=== PATIENT | male | born 1970 | race African-American/Black ===

== ENCOUNTER 2025-07-26 19:03 | Emergency (ER) | payer BC, MEDICAID ==
[~2025-07-26] VITALS: Ht 177.8 cm; Wt 91.0 kg
[~2025-07-26 19:03] MED LIST: HYDR-3735 PO; MELA10TA2 PO; TRAZ-252 PO
[2025-07-26 19:06] VITALS: O2SAT 98
[2025-07-26] MEDS ORDERED: LORAZEPAM 1MG TABLET PO STA (19:18)
[2025-07-26 20:18] LABS: BASOPHILS % 0.4 % (0.0-2.0); EOSINOPHILS % 2.1 % (0.0-5.0); HEMATOCRIT. 46.9 % (42.0-52.0); HEMOGLOBIN. 15.9 g/dL (14.0-18.0); LYMPHOCYTES % 28.7 % (20.0-50.0); MEAN PLATELET VOLUME 8.8 fl (7.4-10.4); MONOCYTES % 6.7 % (2.0-8.0); NEUTROPHILS % 62.1 % (40.0-76.0); PLATELET 239 x1000/uL (130-400); RED BLOOD CELL COUNT 5.14 mill/uL (4.7-6.1); RED CELL DISTRIBUTION WIDTH 13.5 % (11.6-14.6)
[2025-07-26 20:36] LABS: CREATININE 1.2 mg/dL (0.6-1.3)
[2025-07-26 20:37] LABS: UREA NITROGEN BLOOD 7 mg/dL (9-23)
[2025-07-26 20:38] LABS: ASPARTATE AMINOTRANSFERASE 8 IU/L (<34)
[2025-07-26 20:39] LABS: BILIRUBIN DIRECT 0.1 mg/dL (<=3.0); BILIRUBIN TOTAL 0.5 mg/dL (0.1-1.0); PROTEIN TOTAL 7.0 g/dL (6.0-8.3)
[2025-07-26 20:46] LABS: CLARITY URINE CLEAR (CLEAR); COLOR URINE YELLOW (YELLOW); GLUCOSE URINE TRACE (NEGATIVE); KETONES URINE TRACE (NEGATIVE); LEUKOCYTE ESTERASE URINE TRACE (NEGATIVE); NITRITE URINE NEGATIVE (NEGATIVE); OCCULT BLOOD URINE NEGATIVE (NEGATIVE); PH URINE 5.5 (4.5-8.0); PROTEIN URINE TRACE (NEGATIVE); SPECIFIC GRAVITY URINE 1.020 (1.005-1.030); UROBILINOGEN URINE 0.2 E.U./dL (0.2-1.0)
[2025-07-26 21:01] LABS: *AMPHETAMINES SCREEN URINE PRESUMPTIVE POSITIVE (NEGATIVE); *BARBITURATES SCREEN URINE NEGATIVE (NEGATIVE); *BENZODIAZEPINES SCREEN URINE NEGATIVE (NEGATIVE)
[2025-07-26 21:02] LABS: *COCAINE SCREEN URINE NEGATIVE (NEGATIVE); BACTERIA URINE NONE SEEN; CANNABINOID URINE SCREEN PRESUMPTIVE POSITIVE (NEGATIVE); ECSTASY MDMA SCREEN URINE NEGATIVE (NEGATIVE); METHADONE URINE SCREEN NEGATIVE (NEGATIVE); MUCUS URINE TRACE /lpf (NONE/TRACE); OPIATES URINE SCREEN NEGATIVE (NEGATIVE); PHENCYCLIDINE URINE SCREEN NEGATIVE (NEGATIVE); RBC URINE NONE SEEN /hpf (0-2); SQUAMOUS EPITHELIAL CELL URINE RARE /lpf (RARE/1+); WBC URINE 0-2 /hpf (0-2)
[2025-07-27] MEDS: LORAZEPAM 1MG TABLET PO SCH
[2025-07-27] MEDS: OLANZAPINE 5MG TABLET ODT PO SCH (10:35)
[2025-07-28 12:30] VITALS: BP 103/63; PULSE 92; RESP 16; TEMP 36.6; O2SAT 99
== END 2025-07-28 18:16 | disposition home or self-care (01) ==
LOC: ER 19:03
DX: R45.851 Suicidal ideations (principal); F20.9 Schizophrenia, unspecified; F41.9 Anxiety disorder, unspecified; Z79.899 Other long term (current) drug therapy; Z20.822 Contact with and (suspected) exposure to COVID-19
CPT/HCPCS: 36415; 80048; 80076; 80305; 80307; 80320; 80329; 81003; 85025; 87426; 99285; G0480